=== PATIENT | female | born 1980 | race African-American/Black ===

== ENCOUNTER 2022-01-12 02:58 | Inpatient (IN) | payer OTHER ==
[2022-01-12] MEDS ORDERED: SODIUM CHLORIDE 0.9% 500 ML INFUS.BAG IV ONE (03:13)
[2022-01-12 05:03] LABS: VENOUS BASE EXCESS -20.1 mmol/L (-2-2); VENOUS O2 SATURATION 85.1 % (70-80); VENOUS PCO2 26.8 mmHg (38-52)
[2022-01-12 05:07] LABS: BASO % 0.2 % (0-2.0); HEMATOCRIT 44.9 % (32.4-45.2); HEMOGLOBIN 14.3 GM/dL (10.7-15.3); LYMPH % 6.5 % (8-40); MCH 25.4 pg (25.7-33.7); MCHC 31.9 g/dl (32.0-36.0); MEAN CELL VOLUME 79.9 fl (80-96); MEAN PLT VOLUME 10.8 fl (7.5-11.1); MONO % 4.5 % (3.8-10.2); NEUT % 88.8 % (42.8-82.8); PLATELET COUNT 234 10^3/uL (134-434); RBC 5.63 M/mm3 (3.60-5.2); RDW 18.8 % (11.6-15.6); WHITE BLOOD COUNT 13.2 K/mm3 (4.0-10.0)
[2022-01-12 05:11] LABS: EPI CELLS 21 /uL (0-25.1); HYALINE CASTS 0 /uL (0-3.1); URINE APPEARANCE CLEAR; URINE BACTERIA 555 /uL (0-1359); URINE BILIRUBIN NEGATIVE (NEGATIVE); URINE COLOR YELLOW; URINE GLUCOSE (UA) 3+ (NEGATIVE); URINE KETONE 4+ (NEGATIVE); URINE LEUK ESTERASE NEGATIVE (NEGATIVE); URINE NITRITE NEGATIVE (NEGATIVE); URINE PROTEIN 1+ (NEGATIVE); URINE RBC 3 /uL (0-23.9); URINE UROBILINOGEN 0.2 mg/dL (0.2-1.0); URINE WBC 3 /uL (0-25.8)
[2022-01-12 05:12] LABS: VENOUS PH 7.1 (7.310-7.410)
[2022-01-12 05:24] LABS: CHLORIDE 93 mmol/L (98-107); MAGNESIUM 1.8 mg/dL (1.8-2.4); SODIUM 130 mmol/L (136-145)
[2022-01-12 05:26] LABS: CALCIUM 10.1 mg/dL (8.5-10.1)
[2022-01-12 05:27] LABS: ALBUMIN 4.3 g/dl (3.4-5.0); ANION GAP 28 MMOL/L (8-16); BLOOD UREA NITROGEN 12.7 mg/dL (7-18); CO2 9 mmol/L (21-32)
[2022-01-12 05:30] LABS: CREATININE 1.1 mg/dL (0.55-1.3); SGOT/AST 29 U/L (15-37); SGPT/ALT 28 U/L (13-61)
[2022-01-12 05:31] LABS: BILIRUBIN,TOTAL 0.8 mg/dL (0.2-1)
[2022-01-12 05:32] LABS: ALK PHOS 93 U/L (45-117)
[2022-01-12 05:35] LABS: GLUCOSE,RANDOM 445 mg/dL (74-106)
[2022-01-12] MEDS ORDERED: INSULIN REGULAR HUMAN 100 UNITS/ML *VIAL SQ ONE (05:36)
[2022-01-12] MEDS ORDERED: INSULIN (NOVOLOG) ASPART 100 UNITS/ML 10ML VIAL SQ ONE (05:41)
[2022-01-12] MEDS ORDERED: INSULIN REGULAR HUMAN 100 UNITS/ML *VIAL* (FOR IVP) IVPUSH ONE (06:00)
[2022-01-12] MEDS ORDERED: LACTATED RINGERS SOLUTION 1,000 ML/1,000 ML INFUS.BAG IV STA ×4 (06:02→23:13)
[2022-01-12] MEDS ORDERED: D5-NS + 20 MEQ KCL - 20 MEQ/1,000 ML INFUS.BAG IV SCH ×2 (06:15→13:30)
[2022-01-12] MEDS ORDERED: CEFTRIAXONE 1 GM in DEXTROSE 5%-WATER - 50 ML IVPB STA (06:22)
[2022-01-12] MEDS: INSULIN REGULAR 100 UNITS in SODIUM CHLORIDE 99 ML IVPB SCH ×2 (06:28→16:16)
[2022-01-12 07:57] VITALS: BMI 26.7
[2022-01-12] MEDS ORDERED: SODIUM CHLORIDE 0.45%/POT 20 MEQ/1,000 ML INFUS.BAG IV SCH (08:15)
[2022-01-12] MEDS ORDERED: TRIMETHOBENZAMIDE HCL 200MG/2ML INJ IM ONE (08:15)
[2022-01-12] MEDS: ONDANSETRON 4 MG/2 ML VIAL IVPUSH PRN (08:31)
[2022-01-12] MEDS ORDERED: AZITHROMYCIN IVPB 500 MG in DEXTROSE 5%-WATER - 250 ML IVPB SCH (10:00)
[2022-01-12] MEDS ORDERED: AZITHROMYCIN IVPB 500 MG/250 ML BAG IVPB SCH (10:00)
[2022-01-12] MEDS ORDERED: SODIUM CHLORIDE 0.9%/KCL 20 MEQ/1,000 ML INFUS.BAG IV SCH (10:15)
[2022-01-12 11:06] LABS: OPIATES, URI NEGATIVE (NEGATIVE); URINE BARBITURATES NEGATIVE (NEGATIVE)
[2022-01-12 11:07] LABS: COCAINE, UR NEGATIVE (NEGATIVE); PHENCYCLIDINE,URINE NEGATIVE (NEGATIVE); URINE BENZODIAZEPINES NEGATIVE (NEGATIVE)
[2022-01-12 11:14] LABS: METHADONE, UR NEGATIVE (NEGATIVE); URINE AMPHETAMINES NEGATIVE (NEGATIVE)
[2022-01-12] MEDS ORDERED: ACETAMINOPHEN 1000 MG/100 ML BAG IVPB PRN (11:17)
[2022-01-12] MEDS ORDERED: SODIUM CHLORIDE 1,000 ML IV SCH (11:45)
[2022-01-12 13:47] LABS: CHLORIDE 94 mmol/L (98-107); SODIUM 131 mmol/L (136-145)
[2022-01-12 13:49] LABS: ANION GAP 32 MMOL/L (8-16); BLOOD UREA NITROGEN 13.1 mg/dL (7-18); CALCIUM 9.9 mg/dL (8.5-10.1); CO2 6 mmol/L (21-32)
[2022-01-12 13:50] LABS: ALBUMIN 4.2 g/dl (3.4-5.0)
[2022-01-12 13:53] LABS: PHOSPHOROUS 6.2 mg/dL (2.5-4.9); SGOT/AST 33 U/L (15-37); SGPT/ALT 30 U/L (13-61)
[2022-01-12 13:54] LABS: BILIRUBIN,TOTAL 0.7 mg/dL (0.2-1)
[2022-01-12 13:55] LABS: ALK PHOS 93 U/L (45-117)
[2022-01-12 14:02] LABS: CREATININE 1.3 mg/dL (0.55-1.3); GLUCOSE,RANDOM 415 mg/dL (74-106)
[2022-01-12 14:13] LABS: HEMATOCRIT 44.4 % (32.4-45.2); HEMOGLOBIN 14.4 GM/dL (10.7-15.3); MCH 25.6 pg (25.7-33.7); MCHC 32.5 g/dl (32.0-36.0); MEAN CELL VOLUME 78.8 fl (80-96); MEAN PLT VOLUME 9.4 fl (7.5-11.1); PLATELET COUNT 204 10^3/uL (134-434); RBC 5.64 M/mm3 (3.60-5.2); RDW 17.9 % (11.6-15.6); WHITE BLOOD COUNT 21.1 K/mm3 (4.0-10.0)
[2022-01-12] MEDS ORDERED: DEXTROSE 5%-NORMAL SALINE 1,000 ML IV SCH (14:15)
[2022-01-12 14:58] LABS: ANISOCYTOSIS 1+; MACROCYTOSIS 0; PLATELET ESTIMATE NORMAL
[2022-01-12] MEDS: AZITHROMYCIN 250 MG TABLET PO ONE ×2 (15:14→16:22)
[2022-01-12 16:27] LABS: HEMOGLOBIN 14.1 GM/dL (10.7-15.3); MCHC 34.4 g/dl (32.0-36.0); MEAN CELL VOLUME 75.8 fl (80-96); MEAN PLT VOLUME 9.5 fl (7.5-11.1); PLATELET COUNT 187 10^3/uL (134-434); RBC 5.41 M/mm3 (3.60-5.2); RDW 17.8 % (11.6-15.6); WHITE BLOOD COUNT 16.6 K/mm3 (4.0-10.0)
[2022-01-12 16:41] LABS: BLOOD UREA NITROGEN 14.3 mg/dL (7-18)
[2022-01-12 16:44] LABS: CREATININE 0.9 mg/dL (0.55-1.3)
[2022-01-12] MEDS: D5-NS + 20 MEQ KCL - 20 MEQ/1,000 ML INFUS.BAG IV SCH (17:35)
[2022-01-12] MEDS ORDERED: ONDANSETRON 4 MG/2 ML VIAL IVPUSH STA (20:29)
[2022-01-12] MEDS ORDERED: AZITHROMYCIN IVPB 500 MG/250 ML BAG IVPB STA (20:30)
[2022-01-12] MEDS ORDERED: traZODone HCL 50 MG TABLET (FP) ONE (20:35)
[2022-01-12 21:30] LABS: CALCIUM 8.2 mg/dL (8.5-10.1)
[2022-01-12 21:31] LABS: BLOOD UREA NITROGEN 11.8 mg/dL (7-18)
[2022-01-12 21:34] LABS: CREATININE 0.7 mg/dL (0.55-1.3)
[2022-01-12] MEDS ORDERED: ESCITALOPRAM OXALATE 10 MG TABLET PO SCH (22:00)
[2022-01-12] MEDS ORDERED: traZODone HCL 100 MG TABLET (FP) PO SCH (22:00)
[2022-01-13 00:49] LABS: CALCIUM 7.7 mg/dL (8.5-10.1)
[2022-01-13 00:50] LABS: BLOOD UREA NITROGEN 8.4 mg/dL (7-18)
[2022-01-13 00:53] LABS: CREATININE 0.6 mg/dL (0.55-1.3)
[2022-01-13] MEDS: ONDANSETRON 4 MG/2 ML VIAL IVPUSH PRN (02:38)
[2022-01-13 05:05] LABS: CALCIUM 7.8 mg/dL (8.5-10.1)
[2022-01-13 05:06] LABS: BLOOD UREA NITROGEN 5.6 mg/dL (7-18)
[2022-01-13 05:13] LABS: CREATININE 0.6 mg/dL (0.55-1.3)
[2022-01-13] MEDS: INSULIN REGULAR 100 UNITS in SODIUM CHLORIDE 99 ML IVPB SCH (06:00)
[2022-01-13] MEDS: KCL 10 MEQ IVPB 10 MEQ/100 ML INFUS.BAG IVPB SCH ×3 (06:30→08:36)
[2022-01-13 06:55] LABS: HEMATOCRIT 32.9 % (32.4-45.2); HEMOGLOBIN 10.9 GM/dL (10.7-15.3); MCH 25.3 pg (25.7-33.7); MEAN CELL VOLUME 76.6 fl (80-96); MEAN PLT VOLUME 9.1 fl (7.5-11.1); PLATELET COUNT 160 10^3/uL (134-434); RBC 4.29 M/mm3 (3.60-5.2); RDW 18.3 % (11.6-15.6); WHITE BLOOD COUNT 13.3 K/mm3 (4.0-10.0)
[2022-01-13 07:23] LABS: CALCIUM 7.7 mg/dL (8.5-10.1)
[2022-01-13 07:24] LABS: BLOOD UREA NITROGEN 4.3 mg/dL (7-18)
[2022-01-13 07:27] LABS: CREATININE 0.6 mg/dL (0.55-1.3)
[2022-01-13 07:28] LABS: BILIRUBIN,TOTAL 0.3 mg/dL (0.2-1)
[2022-01-13 07:35] LABS: ALBUMIN 2.5 g/dl (3.4-5.0); TOT PROT 4.7 g/dl (6.4-8.2)
[2022-01-13] MEDS ORDERED: CEFTRIAXONE 1 GM in DEXTROSE 5%-WATER - 50 ML IVPB SCH (10:00)
[2022-01-13] MEDS ORDERED: ENOXAPARIN NA (PORCINE) 40 MG/0.4 ML DISP.SYRIN SQ SCH (10:00)
[2022-01-13] MEDS ORDERED: AZITHROMYCIN 250 MG TABLET PO SCH (10:00)
[2022-01-13] MEDS ORDERED: AZITHROMYCIN IVPB 500 MG/250 ML BAG IVPB SCH (10:00)
[2022-01-13] MEDS ORDERED: INSULIN (LEVEMIR) 100 UNITS/ML UNITS SQ SCH (10:00)
[2022-01-13] MEDS: INSULIN SLIDING SCALE (NOVOLOG) 1 VIAL SQ SCH ×3 (12:21→21:19)
[2022-01-13 12:24] LABS: HEMOGLOBIN 11.9 GM/dL (10.7-15.3); MCH 25.9 pg (25.7-33.7); MCHC 33.9 g/dl (32.0-36.0); MEAN CELL VOLUME 76.4 fl (80-96); MEAN PLT VOLUME 9.3 fl (7.5-11.1); PLATELET COUNT 156 10^3/uL (134-434); RBC 4.58 M/mm3 (3.60-5.2); RDW 17.8 % (11.6-15.6); WHITE BLOOD COUNT 11.4 K/mm3 (4.0-10.0)
[2022-01-13 12:46] LABS: BLOOD UREA NITROGEN 3.2 mg/dL (7-18); MAGNESIUM 1.5 mg/dL (1.8-2.4)
[2022-01-13 12:50] LABS: CREATININE 0.6 mg/dL (0.55-1.3)
[2022-01-13 12:51] LABS: PHOSPHOROUS 1.2 mg/dL (2.5-4.9)
[2022-01-13] MEDS ORDERED: MAGNESIUM SULF 50% (8.12 MEQ/2 ML-1 GM VIAL) IVPB ONE (13:20)
[2022-01-13] MEDS: NAPH,MB-DB/K PH,MBDB POWDER PACKET PO SCH ×2 (13:49→21:15)
[2022-01-13] MEDS: D5-NS + 20 MEQ KCL - 20 MEQ/1,000 ML INFUS.BAG IV SCH (17:44)
[2022-01-13] MEDS ORDERED: ONDANSETRON 4 MG/2 ML VIAL IVPUSH PRN (18:19)
[2022-01-13] MEDS ORDERED: ACETAMINOPHEN 1000 MG/100 ML BAG IVPB PRN (18:19)
[2022-01-13] MEDS ORDERED: BENZOCAINE/MENTH/CETYLPYRD CL 1 EACH LOZENGE MM PRN (18:30)
[2022-01-13] MEDS: traZODone HCL 100 MG TABLET (FP) PO SCH (21:16)
[2022-01-13] MEDS: ESCITALOPRAM OXALATE 10 MG TABLET PO SCH (21:17)
[2022-01-13] MEDS: INSULIN (LEVEMIR) 100 UNITS/ML UNITS SQ SCH (21:17)
[2022-01-14] MEDS: INSULIN SLIDING SCALE (NOVOLOG) 1 VIAL SQ SCH ×4 (06:11→21:41)
[2022-01-14] MEDS: NAPH,MB-DB/K PH,MBDB POWDER PACKET PO SCH (06:11)
[2022-01-14] MEDS: INSULIN (LEVEMIR) 100 UNITS/ML UNITS SQ SCH ×2 (09:59→21:42)
[2022-01-14] MEDS ORDERED: ENOXAPARIN NA (PORCINE) 40 MG/0.4 ML DISP.SYRIN SQ SCH (10:00)
[2022-01-14 14:10] LABS: HEMATOCRIT 33.9 % (32.4-45.2); HEMOGLOBIN 11.7 GM/dL (10.7-15.3); MCH 26.1 pg (25.7-33.7); MCHC 34.5 g/dl (32.0-36.0); MEAN CELL VOLUME 75.6 fl (80-96); MEAN PLT VOLUME 9.4 fl (7.5-11.1); PLATELET COUNT 145 10^3/uL (134-434); RBC 4.48 M/mm3 (3.60-5.2); RDW 18.2 % (11.6-15.6); WHITE BLOOD COUNT 5.4 K/mm3 (4.0-10.0)
[2022-01-14 14:31] LABS: CALCIUM 7.8 mg/dL (8.5-10.1); MAGNESIUM 1.8 mg/dL (1.8-2.4)
[2022-01-14 14:33] LABS: ALBUMIN 2.8 g/dl (3.4-5.0); BLOOD UREA NITROGEN 7.5 mg/dL (7-18)
[2022-01-14 14:35] LABS: CREATININE 0.5 mg/dL (0.55-1.3)
[2022-01-14 14:36] LABS: PHOSPHOROUS 1.8 mg/dL (2.5-4.9); TOT PROT 5.4 g/dl (6.4-8.2)
[2022-01-14 14:38] LABS: BILIRUBIN,TOTAL 0.3 mg/dL (0.2-1)
[2022-01-14] MEDS: traZODone HCL 100 MG TABLET (FP) PO SCH (21:49)
[2022-01-14] MEDS: ESCITALOPRAM OXALATE 10 MG TABLET PO SCH (21:50)
[2022-01-15 02:21] VITALS: RESP 16
[2022-01-15 05:16] VITALS: BP 105/62; PULSE 89; TEMP 98.6
[2022-01-15] MEDS: INSULIN SLIDING SCALE (NOVOLOG) 1 VIAL SQ SCH (06:44)
== END 2022-01-15 14:07 | disposition home or self-care (01) | DRG 420 ==
LOC: JER 02:58 → JERBED 05:33 → JICU 07:30 → J6S 01-13 17:28
PROVIDERS: ADMIT Internal Medicine Pulmonary Disease; ATTEND Internal Medicine
PROC: 05HC33Z Insertion of Infusion Device into Left Basilic Vein, Percutaneous Approach (ICD-10-PCS; principal; 2022-01-12)
DX: E10.10 Type 1 diabetes mellitus with ketoacidosis without coma (principal); J18.9 Pneumonia, unspecified organism; E86.0 Dehydration; E78.5 Hyperlipidemia, unspecified
CPT/HCPCS: 36415; 71045-TC-FY; 80048; 80053; 80061; 80307; 81003; 82010; 82803; 82962; 83036; 83735; 84100; 84484; 84702; 85025; 85027; 87040; 87086; 87899; 93005; 93010; 99285-25; C9803-CS; U0003; U0005

== ENCOUNTER 2023-11-18 19:26 | Observation (INO) | payer OTHER ==
[2023-11-18 19:34] VITALS: RESP 16; TEMP 98.2; BMI 24.0
[2023-11-19 00:11] LABS: POTASSIUM 3.9 mmol/L (3.5-5.1)
[2023-11-19 00:13] LABS: ALBUMIN 3.4 g/dl (3.4-5.0); BLOOD UREA NITROGEN 3.6 mg/dL (7-18); CALCIUM 8.7 mg/dL (8.5-10.1); MAGNESIUM 1.7 mg/dL (1.8-2.4)
[2023-11-19 00:14] VITALS: BP 138/70; PULSE 74
[2023-11-19] MEDS: SODIUM CHLORIDE 1,000 ML IV STA (00:14)
[2023-11-19 00:15] LABS: CREATININE 0.8 mg/dL (0.55-1.3); PHOSPHOROUS 1.6 mg/dL (2.5-4.9)
[2023-11-19 00:18] LABS: BILIRUBIN,TOTAL 0.5 mg/dL (0.2-1); TOT PROT 7.2 g/dl (6.4-8.2)
[2023-11-19 02:03] LABS: VENOUS BASE EXCESS -8.4 mmol/L (-2-2); VENOUS O2 SATURATION 94.4 % (70-80); VENOUS PCO2 29.3 mmHg (38-52); VENOUS PH 7.353 (7.310-7.410)
[2023-11-19 02:25] LABS: POTASSIUM 4.5 mmol/L (3.5-5.1)
[2023-11-19 02:27] LABS: ALBUMIN 3.3 g/dl (3.4-5.0); BLOOD UREA NITROGEN 3.3 mg/dL (7-18); CALCIUM 8.9 mg/dL (8.5-10.1)
[2023-11-19 02:30] LABS: CREATININE 0.7 mg/dL (0.55-1.3)
[2023-11-19 02:32] LABS: BILIRUBIN,TOTAL 0.4 mg/dL (0.2-1)
[2023-11-19 02:40] LABS: BASO % 0.3 % (0-2.0); EOS % 0.3 % (0-4.5); HEMATOCRIT 32.6 % (32.4-45.2); HEMOGLOBIN 10.8 GM/dL (10.7-15.3); LYMPH % 5.7 % (8-40); MCH 26.4 pg (25.7-33.7); MEAN CELL VOLUME 79.9 fl (80-96); MEAN PLT VOLUME 8.2 fl (7.5-11.1); MONO % 11.6 % (3.8-10.2); NEUT % 82.1 % (42.8-82.8); PLATELET COUNT 489 10^3/uL (134-434); RBC 4.08 M/mm3 (3.60-5.2); RDW 21.3 % (11.6-15.6); WHITE BLOOD COUNT 9.5 K/mm3 (4.0-10.0)
[2023-11-19] MEDS ORDERED: VANCOMYCIN 1 GRAM (PRE-DOCKED) 1,000 MG/250 ML BAG IVPB ONE (02:58)
[2023-11-19] MEDS ORDERED: INSULIN ASPART SLIDING SCALE (NOVOLOG) 1 VIAL SQ ONE ×2 (03:15→03:19)
[2023-11-19] MEDS: INSULIN (NOVOLOG) ASPART 100 UNITS/ML 10ML VIAL SQ ONE (03:37)
[2023-11-19] MEDS: SODIUM CHLORIDE 0.9% 500 ML INFUS.BAG IV ONE (03:37)
[2023-11-19] MEDS: VANCOMYCIN 1,000 MG in DEXTROSE 5%-WATER - 250 ML IVPB ONE (03:37)
[2023-11-19 06:10] LABS: ADD RBC MORPHOLOGY YES; ANISOCYTOSIS 2+
[2023-11-19] MEDS ORDERED: PIPERACILLIN/TAZOB 4.5 GM 4.5 GM in DEXTROSE 5%-WATER 100 ML IVPB SCH ×2 (10:00→18:00)
[2023-11-19] MEDS ORDERED: INSULIN (LEVEMIR) 100 UNITS/ML UNITS SQ SCH ×2 (10:00→22:00)
[2023-11-19] MEDS ORDERED: INSULIN ASPART SLIDING SCALE (NOVOLOG) 1 VIAL SQ SCH (11:00)
[2023-11-19] MEDS ORDERED: VANCOMYCIN 1 GRAM (PRE-DOCKED) 1,000 MG/250 ML BAG IVPB SCH (15:00)
[2023-11-19] MEDS ORDERED: VANCOMYCIN 1,000 MG in DEXTROSE 5%-WATER - 250 ML IVPB SCH (15:00)
== END 2023-11-19 09:20 | disposition left against medical advice (07) ==
LOC: JERFT 19:26 → UNDOADMOB 11-19 07:14 → JERBED 11-19 07:14 → INTOOBSV 11-19 07:14 → JERBED 11-19 08:37
PROVIDERS: ADMIT Internal Medicine; ATTEND Internal Medicine
PROC: 3E03329 Introduction of Other Anti-infective into Peripheral Vein, Percutaneous Approach (ICD-10-PCS; principal; 2023-11-19)
PROC: 3E0337Z Introduction of Electrolytic and Water Balance Substance into Peripheral Vein, Percutaneous Approach (ICD-10-PCS; 2023-11-19)
DX: E11.9 Type 2 diabetes mellitus without complications (principal); L02.413 Cutaneous abscess of right upper limb; Z79.4 Long term (current) use of insulin; Z91.018 Allergy to other foods; E78.00 Pure hypercholesterolemia, unspecified; F17.210 Nicotine dependence, cigarettes, uncomplicated; F03.90 Unspecified dementia, unspecified severity, without behavioral disturbance, psychotic disturbance, mood disturbance, and anxiety
CPT/HCPCS: 36415; 80053; 82010; 82803; 82962; 83605; 83735; 84100; 84703; 85025; 96365; 99285-25; G0378

== ENCOUNTER 2023-11-20 13:50 | Inpatient (IN) | payer OTHER ==
[2023-11-20 14:37] VITALS: BMI 23.9
[2023-11-20 15:04] LABS: BASO % 0.5 % (0-2.0); EOS % 0.1 % (0-4.5); HEMATOCRIT 33.2 % (32.4-45.2); HEMOGLOBIN 11.2 GM/dL (10.7-15.3); LYMPH % 25.3 % (8-40); MCH 26.9 pg (25.7-33.7); MCHC 33.8 g/dl (32.0-36.0); MEAN CELL VOLUME 79.6 fl (80-96); MEAN PLT VOLUME 7.8 fl (7.5-11.1); MONO % 8.9 % (3.8-10.2); NEUT % 65.2 % (42.8-82.8); PLATELET COUNT 420 10^3/uL (134-434); RBC 4.18 M/mm3 (3.60-5.2); RDW 20.9 % (11.6-15.6); WHITE BLOOD COUNT 7.1 K/mm3 (4.0-10.0)
[2023-11-20 15:10] LABS: PH,URINE 5.5 (5.0-8.0); URINE APPEARANCE CLEAR; URINE BILIRUBIN NEGATIVE (NEGATIVE); URINE COLOR YELLOW; URINE GLUCOSE (UA) 3+ (NEGATIVE); URINE KETONE 4+ (NEGATIVE); URINE LEUK ESTERASE NEGATIVE (NEGATIVE); URINE NITRITE NEGATIVE (NEGATIVE); URINE PROTEIN NEGATIVE (NEGATIVE); URINE UROBILINOGEN 0.2 mg/dL (0.2-1.0)
[2023-11-20] MEDS ORDERED: PIPERACILLIN/TAZOB 4.5 GM 4.5 GM/100 ML BAG IVPB ONE ×2 (15:11→23:27)
[2023-11-20] MEDS ORDERED: VANCOMYCIN 1 GRAM (PRE-DOCKED) 1,000 MG/250 ML BAG IVPB ONE (15:11)
[2023-11-20 15:12] LABS: VENOUS BASE EXCESS -13.5 mmol/L (-2-2); VENOUS O2 SATURATION 92.8 % (70-80); VENOUS PCO2 25.4 mmHg (38-52); VENOUS PH 7.278 (7.310-7.410)
[2023-11-20] MEDS: LACTATED RINGERS SOLUTION 1000 ML INFUS.BAG IV ONE ×2 (15:23→21:04)
[2023-11-20] MEDS: PIPERACILLIN/TAZOB 4.5 GM 4.5 GM in DEXTROSE 5%-WATER 100 ML IVPB ONE (15:23)
[2023-11-20 15:27] LABS: CHLORIDE 95 mmol/L (98-107); POTASSIUM 3.6 mmol/L (3.5-5.1); SODIUM 128 mmol/L (136-145)
[2023-11-20] MEDS ORDERED: ONDANSETRON 4 MG/2 ML VIAL ONE (15:28)
[2023-11-20 15:30] LABS: ANION GAP 21 mmol/L (4-13); BLOOD UREA NITROGEN 9.4 mg/dL (7-18); CALCIUM 8.6 mg/dL (8.5-10.1); CO2 13 mmol/L (21-32)
[2023-11-20 15:31] LABS: ALBUMIN 3.2 g/dl (3.4-5.0); INR 1.1 (0.83-1.09); MAGNESIUM 1.7 mg/dL (1.8-2.4); PROTHROMBIN TIME (PATIENT) 12.4 SEC (9.7-13.0)
[2023-11-20 15:34] LABS: ACTIVATED PTT 28.9 SECONDS (25.2-36.5); CREATININE 0.8 mg/dL (0.55-1.3); SGOT/AST 16 U/L (15-37); SGPT/ALT 27 U/L (13-61)
[2023-11-20 15:35] LABS: BILIRUBIN,TOTAL 0.6 mg/dL (0.2-1); GLUCOSE,RANDOM 467 mg/dL (74-106); TOT PROT 6.3 g/dl (6.4-8.2)
[2023-11-20 15:36] LABS: ALK PHOS 69 U/L (45-117)
[2023-11-20] MEDS: ONDANSETRON 4 MG/2 ML VIAL IVPUSH ONE (15:37)
[2023-11-20] MEDS: VANCOMYCIN 1,000 MG in DEXTROSE 5%-WATER - 250 ML IVPB ONE (15:37)
[2023-11-20] MEDS ORDERED: MAGNESIUM SULFATE IN WATER 2 GM/50 ML IVPB IVPB ONE (16:21)
[2023-11-20] MEDS ORDERED: INSULIN REGULAR HUMAN 100 UNITS/ML *VIAL ONE (16:22)
[2023-11-20] MEDS: MAGNESIUM SULFATE IN WATER 2 GM/50 ML IVPB IVPB ONE (16:38)
[2023-11-20] MEDS: INSULIN REGULAR HUMAN 100 UNITS/ML *VIAL* (FOR IVP) IVPUSH ONE (16:38)
[2023-11-20] MEDS: INSULIN REGULAR 100 UNITS in SODIUM CHLORIDE 99 ML IVPB SCH ×2 (17:13→22:08)
[2023-11-20] MEDS: POTASSIUM CHLORIDE 10 MEQ in SODIUM CHLORIDE 1,000 ML IVPB SCH ×2 (17:22→20:07)
[2023-11-20 18:10] LABS: CHLORIDE 96 mmol/L (98-107); POTASSIUM 5.3 mmol/L (3.5-5.1); SODIUM 127 mmol/L (136-145)
[2023-11-20 18:12] LABS: BLOOD UREA NITROGEN 7.3 mg/dL (7-18); CALCIUM 8.5 mg/dL (8.5-10.1)
[2023-11-20 18:13] LABS: ALBUMIN 3.2 g/dl (3.4-5.0); ANION GAP 19 mmol/L (4-13); CO2 12 mmol/L (21-32)
[2023-11-20 18:16] LABS: CREATININE 0.8 mg/dL (0.55-1.3); GLUCOSE,RANDOM 414 mg/dL (74-106); SGOT/AST 54 U/L (15-37); SGPT/ALT 29 U/L (13-61)
[2023-11-20 18:17] LABS: BILIRUBIN,TOTAL 0.7 mg/dL (0.2-1); TOT PROT 6.9 g/dl (6.4-8.2)
[2023-11-20 18:18] LABS: ALK PHOS 71 U/L (45-117); CHOLESTEROL 218 mg/dL (50-200); LDL CHOLESTEROL (ONLY SJRH) 108 mg/dL (5-100)
[2023-11-20 18:21] LABS: HDL CHOLESTEROL 82 mg/dL (40-60)
[2023-11-20] MEDS: SODIUM CHLORIDE 0.9%/KCL 20 MEQ/1,000 ML INFUS.BAG IV SCH (19:10)
[2023-11-20] MEDS: KCL 10 MEQ IVPB 10 MEQ/100 ML INFUS.BAG IVPB SCH (20:07)
[2023-11-20 20:46] LABS: METHADONE, UR NEGATIVE (NEGATIVE); PHENCYCLIDINE,URINE NEGATIVE (NEGATIVE); URINE AMPHETAMINES NEGATIVE (NEGATIVE); URINE BENZODIAZEPINES NEGATIVE (NEGATIVE)
[2023-11-20 20:47] LABS: COCAINE, UR NEGATIVE (NEGATIVE); OPIATES, URI NEGATIVE (NEGATIVE); URINE BARBITURATES NEGATIVE (NEGATIVE)
[2023-11-20] MEDS: DEXTROSE 5%-NORMAL SALINE 1,000 ML IV SCH ×2 (21:04→22:07)
[2023-11-20] MEDS ORDERED: MUPIROCIN 2% TOPICAL OINTMENT FOR DECOLONIZATION NS SCH (22:00)
[2023-11-20] MEDS ORDERED: CHLORHEXIDINE GLUCONATE 4% CLEANSER FOR DECOLONIZATION TP SCH (22:00)
[2023-11-20 22:22] LABS: POTASSIUM 3.6 mmol/L (3.5-5.1)
[2023-11-20 22:23] LABS: CALCIUM 8.3 mg/dL (8.5-10.1)
[2023-11-20 22:24] LABS: BLOOD UREA NITROGEN 5.2 mg/dL (7-18)
[2023-11-20 22:27] LABS: CREATININE 0.6 mg/dL (0.55-1.3)
[2023-11-20] MEDS ORDERED: PIPERACILLIN/TAZOB 4.5 GM 4.5 GM in DEXTROSE 5%-WATER 100 ML IVPB SCH (23:00)
[2023-11-20] MEDS ORDERED: INSULIN (LEVEMIR) 100 UNITS/ML UNITS SQ ONE (23:27)
[2023-11-21] MEDS: LACTATED RINGERS SOLUTION 1,000 ML/1,000 ML INFUS.BAG IV SCH (00:42)
[2023-11-21] MEDS: INSULIN ASPART SLIDING SCALE (NOVOLOG) 1 VIAL SQ SCH ×2 (00:42→16:39)
[2023-11-21] MEDS: INSULIN (LEVEMIR) 100 UNITS/ML UNITS SQ SCH (00:42)
[2023-11-21] MEDS: PIPERACILLIN/TAZOB 4.5 GM 4.5 GM in DEXTROSE 5%-WATER 100 ML IVPB SCH (00:48)
[2023-11-21] MEDS ORDERED: VANCOMYCIN 1 GM PREMIX - 1 GM/200 ML BAG IVPB SCH (03:00)
[2023-11-21] MEDS: INSULIN REGULAR HUMAN 100 UNITS/ML *VIAL IVPUSH ONE (03:10)
[2023-11-21] MEDS: VANCOMYCIN/WATER FOR INJ (PEG) 1 GM/200 ML BAG IVPB SCH (04:04)
[2023-11-22] MEDS: VANCOMYCIN/WATER FOR INJ (PEG) 1 GM/200 ML BAG IVPB SCH (03:25)
[2023-11-22] MEDS: INSULIN (NOVOLOG) ASPART 100 UNITS/ML 10ML VIAL SQ SCH (06:31)
[2023-11-22] MEDS: INSULIN (LEVEMIR) 100 UNITS/ML UNITS SQ SCH (06:31)
[2023-11-22] MEDS ORDERED: INSULIN ASPART SLIDING SCALE (NOVOLOG) 1 VIAL SQ ONE (09:08)
[2023-11-22] MEDS: LACTATED RINGERS SOLUTION 1,000 ML/1,000 ML INFUS.BAG IV SCH (22:35)
[2023-11-22] MEDS: INSULIN ASPART SLIDING SCALE (NOVOLOG) 1 VIAL SQ SCH (22:35)
[2023-11-23] MEDS ORDERED: ACETAMINOPHEN 325 MG TABLET (FP) PO PRN ×2 (10:00→12:38)
[2023-11-23] MEDS ORDERED: oxyCODONE HCL 5 MG TABLET PO PRN ×2 (10:00→12:38)
[2023-11-23] MEDS ORDERED: ONDANSETRON 4 MG/2 ML VIAL IVPUSH PRN ×2 (10:00→12:38)
[2023-11-23] MEDS ORDERED: MIDAZOLAM HCL 2 MG/2 ML SINGLE DOSE VIAL ONE (10:39)
[2023-11-23] MEDS ORDERED: PROPOFOL 20 ML ONE (11:20)
[2023-11-23] MEDS ORDERED: VASopressin 20 UNITS/ML VIAL IV ONE (11:45)
[2023-11-23] MEDS ORDERED: BACITRACIN ZINC 15 GM TUBE TOPICAL OINTMENT ONE (11:49)
[2023-11-23] MEDS: BACITRACIN ZINC 15 GM TUBE TOPICAL OINTMENT TP ONE (11:50)
[2023-11-23] MEDS: LACTATED RINGERS SOLUTION 1,000 ML IV SCH ×2 (12:10→14:55)
[2023-11-23] MEDS: INSULIN ASPART SLIDING SCALE (NOVOLOG) 1 VIAL SQ SCH (12:15)
[2023-11-23] MEDS: INSULIN (NOVOLOG) ASPART 100 UNITS/ML 10ML VIAL SQ ONE (12:15)
[2023-11-23] MEDS: DALBAVANCIN HCL 1,500 MG in DEXTROSE 5%-WATER - 500 ML IVPB ONE (13:24)
[2023-11-23] MEDS: INSULIN (LEVEMIR) 100 UNITS/ML UNITS SQ SCH ×2 (13:58→14:02)
[2023-11-23] MEDS ORDERED: DALBAVANCIN HCL 1,500 MG in DEXTROSE 5%-WATER - 500 ML IVPB ONE (14:00)
[2023-11-23] MEDS ORDERED: INSULIN (LEVEMIR) 100 UNITS/ML UNITS SQ SCH ×2 (14:00→22:00)
[2023-11-23] MEDS ORDERED: INSULIN (LEVEMIR) 100 UNITS/ML UNITS SQ ONE (14:03)
[2023-11-23 14:26] VITALS: RESP 18
[2023-11-23] MEDS ORDERED: INSULIN REGULAR HUMAN 100 UNITS/ML *VIAL IVPUSH ONE (14:51)
[2023-11-23] MEDS: BACITRACIN ZINC 15 GM TUBE TOPICAL OINTMENT TP SCH (15:47)
[2023-11-23 16:43] VITALS: BP 113/75; PULSE 114; TEMP 97.5
[2023-11-23] MEDS ORDERED: INSULIN ASPART SLIDING SCALE (NOVOLOG) 1 VIAL SQ ONE (16:53)
[2023-11-23] MEDS: INSULIN (NOVOLOG) ASPART 100 UNITS/ML 10ML VIAL SQ SCH (16:55)
== END 2023-11-24 15:35 | disposition home or self-care (01) | DRG 420 ==
LOC: JER 13:50 → JERBED 16:41 → J6S 11-21 03:58 → UNDODISIN 11-21 17:45 → J6S 11-23 18:29
PROVIDERS: ADMIT Internal Medicine; ATTEND Internal Medicine
PROC: 0J9D0ZX Drainage of Right Upper Arm Subcutaneous Tissue and Fascia, Open Approach, Diagnostic (ICD-10-PCS; principal; 2023-11-23 10:30)
DX: E11.10 Type 2 diabetes mellitus with ketoacidosis without coma (principal); L02.413 Cutaneous abscess of right upper limb; E87.1 Hypo-osmolality and hyponatremia; E78.5 Hyperlipidemia, unspecified
CPT/HCPCS: 36415; 71045-TC-FY; 73090-TC-RT-FY; 76882-TC-RT-FY; 80048; 80053; 80061; 80307; 81003; 82010; 82550; 82803; 82962; 83605; 83690; 83735; 83930; 84100; 84484; 84703; 85025; 85610; 85730; 86850; 86900; 86901; 87040; 87070; 87086; 87186; 87205; 88304-TC; 93005; 93010; 94760; 96365; 99285-25; G0378; J0875

== ENCOUNTER 2023-12-02 22:03 | Emergency (ER) | payer OTHER ==
[2023-12-02 22:16] VITALS: BP 130/77; PULSE 98; BMI 19.5
[2023-12-02 22:25] VITALS: RESP 18; TEMP 98.1
== END 2023-12-02 22:49 | disposition home or self-care (01) ==
LOC: JER 22:03
DX: E11.649 Type 2 diabetes mellitus with hypoglycemia without coma (principal); Z79.4 Long term (current) use of insulin
CPT/HCPCS: 82962; 99283-25